=== PATIENT | male | born 1965 | race Caucasian/White ===

== ENCOUNTER 2017-01-29 06:27 | Inpatient (IN) | payer OTHER ==
[2017-01-27 14:43] VITALS: BMI 27.3
[2017-01-29] MEDS ORDERED: LIDOCAINE HCL/PF 2% SDV 5ML VIAL ONE (07:38)
[2017-01-29] MEDS ORDERED: PROPOFOL 20 ML ONE (07:38)
[2017-01-29] MEDS ORDERED: SUCCINYLCHOLINE CHLORIDE 200 MG/10 ML VIAL ONE (07:38)
[2017-01-29] MEDS ORDERED: MIDAZOLAM HCL 2 MG/2 ML SINGLE DOSE VIAL ONE (07:38)
[2017-01-29] MEDS ORDERED: ROCURONIUM BROMIDE 50 MG/5 ML VIAL ONE ×3 (07:38→15:15)
[2017-01-29] MEDS ORDERED: DESFLURANE GAS 240 ML BOTTLE IH ONE ×2 (07:46→15:47)
--- NOTE | 2017-01-29 08:29 | HP ---
History & Physical Update - History History: No Change - Physical Physical: No Change - Assessment Assessment: No Change - Plan Plan: No Change
[2017-01-29] MEDS ORDERED: ERTAPENEM SODIUM 1 GM/50 ML PRE-DOCKED IVPB ONE (08:50)
[2017-01-29] MEDS ORDERED: ERTAPENEM SODIUM 1 GM VIAL ONE (08:50)
[2017-01-29] MEDS ORDERED: INDOCYANINE GREEN 25 MG/10 ML VIAL IVPUSH ONE (09:25)
[2017-01-29] MEDS ORDERED: ISOSULFAN BLUE 10 MG/ML VIAL SQ ONE (12:57)
[2017-01-29] MEDS ORDERED: HYDROmorphone HCL/PF 1 MG/ML VIAL (FOR PYXIS CHARGING ONLY) ONE (14:17)
[2017-01-29] MEDS ORDERED: NEOSTIGMINE METHYLSULFATE 0.5 MG/ML - 10 ML MDV ONE (15:58)
[2017-01-29] MEDS ORDERED: GLYCOPYRROLATE 0.2 MG/1 ML VIAL ONE (16:01)
[2017-01-29] MEDS ORDERED: ONDANSETRON 4 MG/2 ML VIAL IVPUSH PRN (16:59)
[2017-01-29] MEDS ORDERED: ERTAPENEM SODIUM 1 GM in SODIUM CHLORIDE 50 ML IVPB ONE (17:57)
[2017-01-29] MEDS ORDERED: HYDROmorphone *PCA* 10MG/50ML DISP.SYRIN PCA SCH (18:00)
[2017-01-29] MEDS ORDERED: LACTATED RINGERS SOLUTION 1,000 ML IV SCH ×2 (18:00→20:45)
[2017-01-29 18:10] LABS: BASOPHIL 0.1 % (0-2.0); MCH 25.6 pg (25.7-33.7); MCHC 31.5 g/dl (32.0-35.9); MEAN CELL VOLUME 81.2 fl (80-96); MEAN PLT VOLUME 6.5 fl (7.5-11.1); NEUTROPHILS 87.4 % (42.8-82.8); PLATELET COUNT 427 K/MM3 (134-434); RDW 15.4 % (11.9-15.9); WHITE BLOOD COUNT 17.6 K/mm3 (4.0-10.0)
--- NOTE | 2017-01-29 18:17 | OP ---
Operative Note - Note: Operative Date: 01/29/17 Pre-Operative Diagnosis: colo-vesical fistula Operation: Robotic partial colectomy (sigmoidectomy), splenic flexure takedown, resection of colovesical fistula Findings: sigmoid inflammatory mass, colo-vesical fistula Post-Operative Diagnosis: Same as Pre-op Surgeon: Rafy Smith Tool Filer: Chantal Burns Anesthesia: General Specimens Removed: sigmoid colon Estimated Blood Loss (mls): 150
[2017-01-29] MEDS ORDERED: HYDROmorphone HCL CARPU-JECT 2 MG/1 ML DISP.SYRIN ONE (18:49)
[2017-01-29] MEDS: HYDROmorphone HCL CARPU-JECT 2 MG/1 ML DISP.SYRIN IVPB PRN ×2 (18:50→23:17)
[2017-01-29 18:52] LABS: ALBUMIN 2.7 g/dl (3.4-5.0); ALK PHOS 77 U/L (45-117); ANION GAP 7 (8-16); BILIRUBIN,TOTAL 0.7 mg/dL (0.2-1.0); CALCIUM 8.2 mg/dL (8.5-10.1); CO2 27 mmol/L (21-32); CREATININE 1.1 mg/dL (0.7-1.3); GLUCOSE,RANDOM 159 mg/dL (74-106); SGOT/AST 13 U/L (15-37); SGPT/ALT 17 U/L (12-78); TOT PROT 6.3 g/dl (6.4-8.2)
--- NOTE | 2017-01-29 21:15 | CONSULT ---
Consult Consult Specialty:: Pulm/CCM Reason for Consultation:: Post-op colovesicular fistula repair - History of Present Illness Chief Complaint: s/p colectomy; colovesicular fistul repair History of Present Illness: 52yom with PMHx of diverticulosis who was found to have a bladder mass(benign by biopsy) and colon-vesicular fistula after presenting with c/o 2 months of LLQ pain and feculent urine. Today he is post op robotic colectomy and colovesiclar fistula repair ccb rt side subcutaneous emphysema. He was extubated and recovered in the PACU and transferred to ICU for observation. Rec'd awake and oriented x3, BP 127/81; HR 93, o2 sat 99% on 2L NC. Abd incisions x5 dry and intact. NEW to bulb draing small amt sanguinous fluid. Urine blood tinged. C/o mild discomfort at surgical sites. Minimal amt SQ air appreciate on rt upper chest. - History Source History Provided By: Patient, Medical Record Limitations to Obtaining History: No Limitations - Past Medical History Gastrointestinal: Yes: Diverticulitis - Alcohol/Substance Use Hx Alcohol Use: Yes (stopped 2 yrs) - Smoking History Smoking history: Former smoker Have you smoked in the past 12 months: No If you are a former smoker, when did you quit?: 30 yrs ago Home Medications - Allergies Allergies/Adverse Reactions: Allergies Allergy/AdvReac Type Severity Reaction Status Date / Time No Known Drug Allergies Allergy Verified 01/27/17 14:43 - Home Medications Home Medications: Ambulatory Orders NK [No Known Home Medication] 01/27/17 Family Disease History - Family Disease History Family History: Unremarkable Review of Systems - Review of Systems Constitutional: reports: No Symptoms Respiratory: reports: No Symptoms Gastrointestinal: reports: Abdominal Pain Genitourinary: reports: Other (feculent urine) Musculoskeletal: reports: No Symptoms Neurological: reports: No Symptoms Hematology/Lymphatic: reports: No Symptoms Psychiatric: reports: No Symptoms Physical Exam Vital Signs: Vital Signs Temperature 98.8 F 01/29/17 20:15 Pulse Rate 99 H 01/29/17 20:15 Respiratory Rate 12 01/29/17 20:15 Blood Pressure 125/80 01/29/17 20:15 O2 Sat by Pulse Oximetry (%) 100 01/29/17 20:00 Constitutional: Yes: Well Nourished, No Distress, Calm Eyes: Yes: WNL HENT: Yes: Normocephalic Neck: Yes: Supple, Trachea Midline Cardiovascular: Yes: Regular Rate and Rhythm Respiratory: Yes: Regular, CTA Bilaterally Gastrointestinal: Yes: Soft, Tenderness ...Rectal Exam: Yes: WNL Renal/: Yes: Freire Present, Hematuria Extremities: Yes: WNL Edema: No Integumentary: Yes: WNL Wound/Incision: Yes: Dressing Dry and Intact (small amt drainage around NEW drain ; epigastric robotic incision sites intact. Midline incision with samll amt serosang drainage) ...Motor Strength: WNL Psychiatric: Yes: Alert, Oriented Labs: CBC, BMP 01/29/17 17:55 01/29/17 17:55 CBC,CMP WBC 17.6 K/mm3 (4.0-10.0) H D 01/29/17 17:55 RBC 3.65 M/mm3 (4.00-5.60) L 01/29/17 17:55 Hgb 9.3 GM/dL (11.7-16.9) L 01/29/17 17:55 Hct 29.6 % (35.4-49) L 01/29/17 17:55 MCV 81.2 fl (80-96) 01/29/17 17:55 MCH 25.6 pg (25.7-33.7) L 01/29/17 17:55 MCHC 31.5 g/dl (32.0-35.9) L 01/29/17 17:55 RDW 15.4 % (11.9-15.9) 01/29/17 17:55 Plt Count 427 K/MM3 (134-434) 01/29/17 17:55 MPV 6.5 fl (7.5-11.1) L 01/29/17 17:55 Neutrophils % 87.4 % (42.8-82.8) H 01/29/17 17:55 Lymphocytes % 3.4 % (8-40) L 01/29/17 17:55 Monocytes % 9.1 % (3.8-10.2) 01/29/17 17:55 Eosinophils % 0.0 % (0-4.5) 01/29/17 17:55 Basophils % 0.1 % (0-2.0) 01/29/17 17:55 Sodium 138 mmol/L (136-145) 01/29/17 17:55 Potassium 4.6 mmol/L (3.5-5.1) 01/29/17 17:55 Chloride 104 mmol/L (98-107) 01/29/17 17:55 Carbon Dioxide 27 mmol/L (21-32) 01/29/17 17:55 Anion Gap 7 (8-16) L 01/29/17 17:55 BUN 15 mg/dL (7-18) D 01/29/17 17:55 Creatinine 1.1 mg/dL (0.7-1.3) D 01/29/17 17:55 Creat Clearance w eGFR > 60 (>60) 01/29/17 17:55 Random Glucose 159 mg/dL (74-106) H D 01/29/17 17:55 Calcium 8.2 mg/dL (8.5-10.1) L 01/29/17 17:55 Total Bilirubin 0.7 mg/dL (0.2-1.0) 01/29/17 17:55 AST 13 U/L (15-37) L 01/29/17 17:55 ALT 17 U/L (12-78) 01/29/17 17:55 Alkaline Phosphatase 77 U/L (45-117) 01/29/17 17:55 Total Protein 6.3 g/dl (6.4-8.2) L 01/29/17 17:55 Albumin 2.7 g/dl (3.4-5.0) L 01/29/17 17:55 Problem List - Problems (1) Colovesical fistula Code(s): N32.1 - VESICOINTESTINAL FISTULA Assessment/Plan 52yom s/p robotic partial colectomy and colon vesical fistula repair ccb rt chest subcutaneous emphysema transferred to ICU for monitoring Plan -Cont NC O2 for o2sat>95% -Cont antibiotics -Monitor for post-op bleeding -Maintain NEW to bulb suction -Monitor CBC and BMP -Monitor UOP -Ice chips for now -Proph lovenox
[2017-01-30] MEDS ORDERED: ENOXAPARIN NA (PORCINE) 40 MG/0.4 ML DISP.SYRIN SQ SCH (04:00)
[2017-01-30] MEDS: HYDROmorphone HCL CARPU-JECT 2 MG/1 ML DISP.SYRIN IVPB PRN ×3 (07:55→21:00)
[2017-01-30 08:20] LABS: BASOPHIL 0.1 % (0-2.0); MCH 25.7 pg (25.7-33.7); MEAN CELL VOLUME 80.5 fl (80-96); MEAN PLT VOLUME 6.5 fl (7.5-11.1); NEUTROPHILS 77.3 % (42.8-82.8); PLATELET COUNT 359 K/MM3 (134-434); RDW 15.2 % (11.9-15.9); WHITE BLOOD COUNT 14.6 K/mm3 (4.0-10.0)
--- NOTE | 2017-01-30 09:31 | PN ---
Progress Note (short form) - Note Progress Note: Patient seen and examined this morning. Patient states he is doing ok, pain is controlled, but complaining of "new" right sided pain. Patient is NPO, using incentive spriometry, has not been OOB yet, denies flatus, Freire catheter in place. Denies fever, chills, nausea, vomiting. Last Vital Signs Temp Pulse Resp BP Pulse Ox 98.2 F 74 16 104/65 100 01/30/17 06:00 01/30/17 08:22 01/30/17 08:22 01/30/17 08:22 01/29/17 20:00 CBC/BMP pending NEW output 50 ml overnight Exam: Gen: NAD, pleasant and cooperative Resp: CTA Cardio: RRR Abd: soft, nondistended, mild tenderness right side and LLQ with palp, incisions /dressings c/d/i, NEW drain in place with serosanguineous drainage : Freire catheter in place with blood tinged urine LE: soft, nontender Problem List - Problems (1) Colovesical fistula Assessment/Plan: POD#1 s/p Robotic partial colectomy (sigmoidectomy), splenic flexure takedown, resection of colovesical fistula Continue NPO, IVF MOnitor NEW output, abd pain, Freire output Follow-up labs DVT prophylaxis Patient discussed with Dr. Smith Code(s): N32.1 - VESICOINTESTINAL FISTULA
--- NOTE | 2017-01-30 09:44 | PN ---
Physical Exam: SUBJECTIVE: Patient seen and examined at bedside in ICU. Pt states he has been having fecal matter in urine for the last 3 months and had colovesicular repair surgery yesterday. He currently feels well and c/o mild abd pain. He has not passed gas yet. He denies N/V/F/C, CP, SOB, hunger. OBJECTIVE: Vital Signs Temperature 98.2 F 01/30/17 06:00 Pulse Rate 74 01/30/17 08:22 Respiratory Rate 16 01/30/17 08:22 Blood Pressure 104/65 01/30/17 08:22 O2 Sat by Pulse Oximetry (%) 100 01/29/17 20:00 GENERAL: The patient is awake, alert, and fully oriented, in no acute distress. HEAD: Normal with no signs of trauma. EYES: extraocular movements intact, sclera anicteric, conjunctiva clear. No ptosis. ENT: Ears normal, nares patent NECK: Trachea midline, full range of motion LUNGS: Breath sounds equal, clear to auscultation bilaterally HEART: Regular rate and rhythm, S1, S2 ABDOMEN: Surgical sites clean, dry, infected except around drain where there is blood drainage. Drain in place with sanginous drainage. : Urine mixed with blood in bhatti. EXTREMITIES: warm, well-perfused NEUROLOGICAL: Normal speech, gait not observed. PSYCH: Normal mood, normal affect. SKIN: Warm, dry Laboratory Results - last 24 hr 01/29/17 01/29/17 01/30/17 17:55 17:55 08:00 WBC 17.6 H D 14.6 H RBC 3.65 L 3.28 L Hgb 9.3 L 8.4 L Hct 29.6 L 26.4 L MCV 81.2 80.5 MCH 25.6 L 25.7 MCHC 31.5 L 32.0 RDW 15.4 15.2 Plt Count 427 359 MPV 6.5 L 6.5 L Neutrophils % 87.4 H 77.3 Lymphocytes % 3.4 L 7.6 L D Monocytes % 9.1 15.0 H Eosinophils % 0.0 0.0 Basophils % 0.1 0.1 Sodium 138 Potassium 4.6 Chloride 104 Carbon Dioxide 27 Anion Gap 7 L BUN 15 D Creatinine 1.1 D Creat Clearance w eGFR > 60 Random Glucose 159 H D Calcium 8.2 L Total Bilirubin 0.7 AST 13 L ALT 17 Alkaline Phosphatase 77 Total Protein 6.3 L Albumin 2.7 L Active Medications Generic Name Dose Route Start Last Admin Trade Name Freq PRN Reason Stop Dose Admin Enoxaparin Sodium 40 mg 01/30/17 04:00 01/30/17 04:25 Lovenox - SQ 40 mg DAILY@0400 [place] Administration Fentanyl 50 mcg 01/29/17 17:43 Sublimaze Injection - IVPUSH 02/01/17 17:44 [id number] PRN PAIN Hydromorphone HCl 2 mg 01/29/17 19:37 01/30/17 07:55 Dilaudid Injection - IVPB 2 mg Q4H PRN Administration PAIN Lactated Ringer's 1,000 mls @ 100 mls/hr 01/29/17 20:45 01/29/17 20:30 Lactated Ringers Solution IV 100 mls/hr ASDIR [place] Administration ASSESSMENT/PLAN: 52 y/o M w/PMH of diverticulosis presented with fecal matter in urine and had colovesicular fistula repair on 01/29/17 and found to have subq emphysema on R abd/chest wall. In ICU for observation. -Colovesicular fistula -s/p robotic partial colectomy, colovesical fistula repair -POD #1 -pain control w/ dilaudid 2mg IV q4h PRN -LR @ 100ml/hr -NPO -DVT ppx -Lovenox 40 mg sq qd -FEN -LR @ 100 ml/hr -monitor electrolytes, replete as necessary -NPO -Dispo: -can be transferred to surgical floor Problem List - Problems (1) Colovesical fistula Code(s): N32.1 - VESICOINTESTINAL FISTULA Visit type - Emergency Visit Emergency Visit: Yes ED Registration Date: 01/29/17 Care time: The patient presented to the Emergency Department on the above date and was hospitalized for further evaluation of their emergent condition. - New Patient This patient is new to me today: Yes Date on this admission: 01/30/17 - Critical Care Critical Care patient: Yes Total Critical Care Time (in minutes): 35 Critical Care Statement: The care of this patient involved high complexity decision making to prevent further life threatening deterioration of the patient 's condition and/or to evalute & treat vital organ system(s) failure or risk of failure.
[2017-01-30 09:46] LABS: ALBUMIN 2.3 g/dl (3.4-5.0); ALK PHOS 67 U/L (45-117); ANION GAP 7 (8-16); BILIRUBIN,TOTAL 0.5 mg/dL (0.2-1.0); CO2 28 mmol/L (21-32); CREATININE 0.7 mg/dL (0.7-1.3); GLUCOSE,RANDOM 130 mg/dL (74-106); SGOT/AST 13 U/L (15-37); SGPT/ALT 15 U/L (12-78); TOT PROT 5.6 g/dl (6.4-8.2)
--- NOTE | 2017-01-30 10:22 | PN ---
Progress Note (short form) - Note Progress Note: S/P robotic partial colectomy, resection of colovesical fistula C/O right sided pain likely from port sites Afebrile, VSS Abd: drain site wound dressing blood stained, NEW sanguinous = 50cc from ICU soft, non-distended : urine less bloody CXR: right sided SC emphysema likely from partial port dislodgment and CO2 leak during surgery WBC = 14 K <- 17K A: stable and no evidence of respiratory compromise P: May transfer to floor OOB, IS, DVT PROPHYLAXIS clear liquid diet
--- NOTE | 2017-01-30 10:57 | PN ---
Progress Note (short form) - Note Progress Note: Post op day#1.S/p Robotic laproscopic resection of colovesical fistula under GA uneventful.P 98,BP 105/70 and Spo2 98% on O2 2l NC.Patient stable.No any anesthesia related problem.Patient DC from the anesthesia care.
--- NOTE | 2017-01-30 11:22 | PN ---
Teaching Attending Note Name of Resident: Savage Bates ATTENDING PHYSICIAN STATEMENT I saw and evaluated the patient. I reviewed the resident's note and discussed the case with the resident. I agree with the resident's findings and plan as documented. SUBJECTIVE: Pt seen and examined in the ICU. Pain controlled. No nausea or vomiting. No flatus or BM. Denies shortness of breath or chest pain. OBJECTIVE: Last Vital Signs Temp Pulse Resp BP Pulse Ox 98.2 F 74 16 104/65 100 01/30/17 06:00 01/30/17 08:22 01/30/17 08:22 01/30/17 08:22 01/30/17 10:48 Intake & Output 01/27/17 01/28/17 01/29/17 01/30/17 23:59 23:59 23:59 23:59 Intake Total 3150 1200 Output Total 970 400 Balance 2180 800 Weight 159 lb 159 lb 158 lb 9 oz Gen: NAD in chair Heart: RRR Lung: decreased breath sounds at the bases Abd: soft, appropriately tender, +NEW drain with serosanguinous drainage, + subcutaneous emphysema Ext: no edema CBC, BMP 01/30/17 08:00 01/30/17 08:00 Active Medications Enoxaparin Sodium (Lovenox -) 40 mg SQ DAILY@0400 [place] Last Admin: 01/30/17 04:25 Dose: 40 mg Fentanyl (Sublimaze Injection -) 50 mcg IVPUSH [id number] PRN PRN Reason: PAIN Stop: 02/01/17 17:44 Hydromorphone HCl (Dilaudid Injection -) 2 mg IVPB Q4H PRN PRN Reason: PAIN Last Admin: 01/30/17 07:55 Dose: 2 mg Lactated Ringer's (Lactated Ringers Solution) 1,000 mls @ 100 mls/hr IV ASDIR [place] Last Admin: 01/29/17 20:30 Dose: 100 mls/hr Potassium Chloride/Dextrose/Sod Cl (D5-1/2ns+10 Meq Kcl -) 1,000 mls @ 83 mls/ hr IV ASDIR [place] ASSESSMENT AND PLAN: s/p Sigmoidectomy/Colovesical Fistula Resection Subcutaneous Emphysema - pain control - incentive spirometry - monitor drain output - IVF - NPO - await return of bowel function - DVT prophylaxis - can monitor on surgical floor
[2017-01-30] MEDS ORDERED: LACTATED RINGERS SOLUTION 1,000 ML IV SCH (11:42)
--- NOTE | 2017-01-30 13:22 | OP ---
DATE OF OPERATION: 01/29/2017 PREOPERATIVE DIAGNOSIS: Diverticulitis. This is the urology portion of the procedure. Dr. Smith is doing the general surgery part. SURGEON: Jacinto Marie MD DRAINS: Bilateral ureteral catheters. PREOPERATIVE INDICATIONS: The patient is a 51-year-old male who underwent colon surgery. Request has been made for ureteral stents to assist with the surgery. THE OPERATION: The patient was brought to the OR, placed on the table in the supine position, given general anesthesia and IV antibiotics, and placed in the modified lithotomy position. The groin was prepped and draped sterilely. Time-out was performed. Cystoscopy was performed. The urethra and prostate appeared to be unremarkable. The bladder itself was also normal. No tumors or stones were seen. Both ureteral orifices were visualized. A wire was passed up into the left UO, and a 6-Pashto open-ended catheter was placed without difficulty at 25 cm. The same thing was done on the right side, as well. The ureteral catheters were then connected to an adapter that the Freire to the Freire bag and were secured to the Freire catheter. JACINTO MARIE M.D. [id number]
--- NOTE | 2017-01-30 13:37 | SURG ---
Surgery Chemical Laboratory Scientist Note Chemical Laboratory Scientist: Chantal Burns PA-C Date of Service: 01/29/17 Diagnosis: colo-vesical fistula Procedure: Robotic partial colectomy (sigmoidectomy), splenic flexure takedown, resection of colovesical fistula I was present for the entirety of the operative procedure. For further detail, please refer to operative report. Visit type - Case Type Case Type: Scheduled Admission - Emergency Emergency Visit: No - New patient This patient is new to me today: Yes Date on this admission: 01/29/17 - Critical Care Critical Care patient: No
[2017-01-31] MEDS: ENOXAPARIN NA (PORCINE) 40 MG/0.4 ML DISP.SYRIN SQ SCH (03:29)
[2017-01-31] MEDS: HYDROmorphone HCL CARPU-JECT 2 MG/1 ML DISP.SYRIN IVPB PRN ×2 (05:55→12:35)
[2017-01-31] MEDS: D5-1/2NS+10 MEQ KCL - 1,000 ML IV SCH ×2 (05:56→18:45)
[2017-01-31] MEDS ORDERED: D5-1/2NS+10 MEQ KCL - 1,000 ML IV SCH (06:00)
[2017-01-31 08:01] LABS: BASOPHIL 0.2 % (0-2.0); EOSINOPHIL 0.6 % (0-4.5); MCH 26.2 pg (25.7-33.7); MCHC 32.3 g/dl (32.0-35.9); MEAN CELL VOLUME 81.3 fl (80-96); NEUTROPHILS 74.7 % (42.8-82.8); PLATELET COUNT 284 K/MM3 (134-434); RDW 15.3 % (11.9-15.9); WHITE BLOOD COUNT 11.2 K/mm3 (4.0-10.0)
[2017-01-31 08:22] LABS: ANION GAP 2 (8-16); CALCIUM 8.1 mg/dL (8.5-10.1); CO2 35 mmol/L (21-32)
[2017-01-31 08:25] LABS: CREATININE 0.5 mg/dL (0.7-1.3); GLUCOSE,RANDOM 97 mg/dL (74-106)
--- NOTE | 2017-01-31 11:26 | PN ---
Progress Note (short form) - Note Progress Note: Patient seen and examined this morning. Patient states he is doing well. He is having some pain/soreness in his lower abdomen, but this pain is controlled. The right-sided pain he was experiencing yesterday is improved. He is tolerating a clear liquid diet. He has not passed gas or had a BM. He has a Freire catheter in place and is using incentive spirometry. Denies fever, chills , nausea, vomiting, dizziness, SOB. Last Vital Signs Temp Pulse Resp BP Pulse Ox 98.3 F 67 20 116/59 100 01/31/17 10:00 01/31/17 10:00 01/31/17 10:00 01/31/17 10:00 01/30/17 21:00 CBC, BMP 01/31/17 06:38 01/31/17 06:38 NEW drain output: 100 ml recorded in chart yesterday, 40 ml overnight Exam: Gen: NAD, pleasant and cooperative Cardio: RRR Resp: CTA Abd: soft, nondistended, tenderness around lower abdominal incision, mild subq air around port sites on right side, NEW drain in place with serosanguineous drainge, dressing around drain saturated, replaced on rounds : Freire catheter with blood tinged urine in bag, improving LE: calves soft, nontender <Kait Chew - Last Filed: 01/31/17 11:33> - Note Progress Note: Surgery Attending POD # 2 Agree with general content of BILLIE Chew's progress notes Tolerating clear liquids Hgb low from post-op hemoglobin drift Abd: mildly distended from intraluminal gas progressing towards the rectum Continue clear liquids and encourage ambulation <Rafy Smith - Last Filed: 02/01/17 10:55> Problem List - Problems (1) Colovesical fistula Assessment/Plan: POD#2 s/p Robotic partial colectomy (sigmoidectomy), splenic flexure takedown, resection of colovesical fistula Pain control Continue clear liquid diet Monitor labs, H&H Monitor NEW output, Freire output DVT prophylaxis Patient discussed with Dr. Smith Code(s): N32.1 - VESICOINTESTINAL FISTULA <Kait Chew - Last Filed: 01/31/17 11:33>
[2017-01-31] MEDS ORDERED: ACETAMINOPHEN 325 MG TABLET (FP) PO PRN (11:32)
--- NOTE | 2017-01-31 15:07 | PATH ---
Surgical Pathology Report Patient Name: ALBERTINA KABA Med. Rec. #: [id number] /Age/Gender: 1965 (Age: 51) / M Account: [id number] Location: [address] [place] [address]/[facility] Taken: 01/29/2017 Received: 01/30/2017 Reported: 01/31/2017 Physicians: Rafy Smith M.D. Specimen(s) Received SIGMOID COLON Clinical History Colovesical fistula, diverticulitis Final Diagnosis COLON, SIGMOID, SEGMENTAL RESECTION: DIVERTICULOSIS WITH GROSSLY NOTED PERFORATION, AND PERICOLIC FIBROSIS WITH ABSCESS CAVITY AND FOREIGN BODY REACTION. THREE BENIGN MESENTERIC LYMPH NODES PRESENT. Electronically Signed Yordan Willett M.D. Gross Description Received in formalin labeled "sigmoid colon," is a 16 cm in length portion of colon with 2 stapled mucosal margins and moderate attached, firm pericolonic adipose tissue. The serosa is styles-castro with 2 separate defects, consistent with rupture sites and attached exudate. The mucosa is styles with normal folds. Sectioning reveals a focal large abscess cavity containing pus. There are additional uncomplicated diverticula present. There are 3 palpable lymph nodes identified ranging from 0.8-0.9 cm in greatest dimension. Silk Screen Printer sections are submitted in 18 cassettes as follows: 1-4-[id number] mucosal margins; 3-4-first perforation site; 5-7-second perforation site; 8-11-mucosa with surrounding abscess cavity; 21-76-[id number] sections of the large abscess cavity; 14-55-vkorfxpqhk diverticula; 16-18-one whole bisected lymph node each. 01/30/201701/30/2017
[2017-01-31] MEDS: oxyCODONE HCL 5 MG TABLET PO PRN ×2 (18:46→23:48)
[2017-02-01] MEDS: ENOXAPARIN NA (PORCINE) 40 MG/0.4 ML DISP.SYRIN SQ SCH (03:52)
[2017-02-01] MEDS: D5-1/2NS+10 MEQ KCL - 1,000 ML IV SCH ×2 (06:35→18:57)
[2017-02-01 07:35] LABS: MCH 26.3 pg (25.7-33.7); MCHC 32.6 g/dl (32.0-35.9); MEAN CELL VOLUME 80.5 fl (80-96); MEAN PLT VOLUME 6.5 fl (7.5-11.1); PLATELET COUNT 335 K/MM3 (134-434); RDW 14.8 % (11.9-15.9); WHITE BLOOD COUNT 7.4 K/mm3 (4.0-10.0)
[2017-02-01 08:04] LABS: ANION GAP 5 (8-16); CALCIUM 7.7 mg/dL (8.5-10.1); CO2 32 mmol/L (21-32); GLUCOSE,RANDOM 109 mg/dL (74-106)
[2017-02-01 08:07] LABS: CREATININE 0.4 mg/dL (0.7-1.3)
--- NOTE | 2017-02-01 11:41 | OP ---
DATE OF OPERATION: 01/29/2017 PROCEDURE: Robotic-assisted, laparoscopic partial colectomy; splenic flexure takedown; and resection of colovesical fistula. PREOPERATIVE DIAGNOSIS: Colovesical fistula. POSTOPERATIVE DIAGNOSIS: Colovesical fistula. SURGEON: Rafy Smith MD LEATHER SPLITTER: BILLIE Rose, and BILLIE Cordon ANESTHESIA: General endotracheal. FINDINGS AND PROCEDURE: This is a 51-year-old male who presents with fecaluria for more than 2 months. He was initially worked-up by Urology to rule out bladder tumor. Patient was admitted more than a month ago for left lower quadrant pain, and a CT scan revealed colovesical fistula with air in the bladder. Patient had cystoscopy and biopsy which revealed inflammatory tissue and a colonoscopy which revealed severe diverticulitis, and a biopsy did not show any malignancy. So, on physical exam, patient has mild left lower quadrant tenderness, and the rest of the exam was unremarkable. So, patient was advised resection of the colovesical fistula, and consent was obtained after discussion of the risks, benefits, and alternatives of the procedure. The patient was brought to the operating room and placed in supine position. General endotracheal anesthesia was administered. Patient was then placed in modified lithotomy position. Dr. Marie inserted the bilateral ureteral stents. The abdomen and the perineum were then prepped and draped in the usual sterile fashion. Using 0.5% Marcaine, local anesthesia was administered to the proposed incision sites. The peritoneal cavity was entered using the Veress needle technique by a right upper quadrant puncture wound, and pneumoperitoneum was established. This was followed by insertion of an 8-mm port. The 3D laparoscope was inserted, and the peritoneal cavity was carefully inspected and was noted to be free of inadvertent injury. The sigmoid colon was noted to be tethered to the posterior abdominal wall in the pelvis and to the urinary bladder. A long segment of distal sigmoid colon was noted to be soft and pliable with no sign of inflammation. The three other 8- mm ports were placed about 8 cm away from each other in a diagonal fashion following the subcostal ribcage about 15 cm away from the sigmoid, with the right lower quadrant port being a 12-mm port. Another 5-mm port was inserted between the second and third port as an acute care assistant port and for suctioning. The patient was then placed in steep Trendelenburg, [id number] position. The robotic arms were docked. Initially, the 3D scope was placed at the 2nd port, but later was moved to the 3rd port at the level of the umbilicus. The EndoWrist graspers were also initially placed in the right lower quadrant port, but later transferred to the subxiphoid port. The EndoWrist clyde at this time were now inserted at the right lower quadrant port. The right upper quadrant port was now holding the fenestrated bipolar. Then, I scrubbed out and commenced the console part of the procedure. The splenic flexure takedown was done initially by incising the white line of Toldt using the EndoWrist clyde connected to monopolar cautery. This was carried towards the splenic flexure until the whole segment of colon was freed up, and with the descending colon being retracted all the way down to the pelvis. After this was done, a [id number]-[id number] dissection of the sigmoid colon was done by incising the medial visceral peritoneum of the sigmoid mesentery using the EndoWrist clyde. This was followed by the use of the vessel sealing device. The sigmoid vessels were identified and isolated. The branch of the superior sigmoid vessels coming from the inferior mesenteric artery was isolated, clipped at 3 points, followed by transection, leaving 2 clips at each artery and the venous stumps. The [id number]-pf-[id number] dissection was proceeded bluntly until the retroperitoneum was visualized. The ureter was properly identified, and dissection was carried above the retroperitoneum until the right paracolic gutter was reached. After this was completed, the takedown of the colovesical fistula was then performed by combined sharp dissection with the EndoWrist clyde and the vessel sealing device. A careful dissection was done, and due to the dense adhesions of the colonic wall to the bladder, part of the lateral wall of the colon was excised and left in situ to the superior dome of the bladder. The bladder was then irrigated with 1 L of saline mixed with methylene blue. The bladder was distended, and pressure was applied. At this point, no blue fluid was noted to extravasate. The distal sigmoid colon was then transected using the Endo JP 45 3.5 mm stapling device. This transection was carried out about 5 cm away from the inflammatory mass. Proximally, the descending colon was transected about also 5 cm from the proximal extent of the inflammatory mass. After this was done, a [id number] intracorporeal anastomosis using the Endo JP 45 stapling device which was fired twice to create a larger lumen. The common channel was then closed with continuous V-Loc 2-0 suture for the full thickness of the colonic wall and continuous Lembert V-Loc 2-0 seromuscular sutures as reinforcement. After the anastomosis was deemed satisfactory, the pelvic region was copiously irrigated with sterile normal saline until return was clear. The fluid mixed with blood was carefully suctioned. The robotic arms were undocked. An 8 -cm Pfannenstiel incision was made at the suprapubic region using scalpel blade number 10, and dissection was carried down to the anterior rectus sheath which was incised transversely, also transecting the pyramidalis muscle down to the peritoneum. The specimen was then extracted via the suprapubic incision. The pneumoperitoneum was evacuated, and the ports were removed. The Yovany-Smyth drain was then deployed into the pelvic cavity. The omentum was then pulled down to be interposed between the bladder and the rectum. The Yovany-Smyth drain was exited via the right lower quadrant port site and was anchored to the skin with 0 silk suture. The wound was then closed with a running Vicryl 0 suture for the peritoneum and running Vicryl 0 suture for the fascia. The wound was copiously irrigated with sterile normal saline until return was clear. All the skin wounds were then closed with skin hugo and covered with sterile dressing. The ureteral stents were removed, leaving the Freire catheter in place. The patient was placed back in supine position and successfully extubated. The patient was transferred to the postanesthesia care unit in satisfactory condition. ESTIMATED BLOOD LOSS: About 150 mL. WOUND CLASS: Clean/contaminated. The patient received a gram of Invanz prior to the start of the procedure, with 1 dose to be administered 12 hours after for antibiotic prophylaxis. Senthil [id number] MTDD
[2017-02-01] MEDS: HYDROmorphone HCL CARPU-JECT 2 MG/1 ML DISP.SYRIN IVPB PRN (14:08)
--- NOTE | 2017-02-01 18:19 | PN ---
Progress Note (short form) - Note Progress Note: POD # 3 Afebrile, VSS Denies flatus Abd: mildly distended, wounds intact urine clear NEW - serosanguinous WBC = 7K Hgb = 8.3 A: Doing well, awaiting full return of bowel function P: stay on clears until passage of flatus/stool ambulate, continue IVF
[2017-02-02] MEDS: ENOXAPARIN NA (PORCINE) 40 MG/0.4 ML DISP.SYRIN SQ SCH (03:18)
[2017-02-02] MEDS: HYDROmorphone HCL CARPU-JECT 2 MG/1 ML DISP.SYRIN IVPB PRN (03:18)
[2017-02-02] MEDS: D5-1/2NS+10 MEQ KCL - 1,000 ML IV SCH ×2 (06:51→19:01)
[2017-02-02 09:03] LABS: BASOPHIL 0.2 % (0-2.0); EOSINOPHIL 5.7 % (0-4.5); MCH 26.1 pg (25.7-33.7); MCHC 31.7 g/dl (32.0-35.9); MEAN CELL VOLUME 82.4 fl (80-96); MEAN PLT VOLUME 6.8 fl (7.5-11.1); NEUTROPHILS 62.1 % (42.8-82.8); PLATELET COUNT 476 K/MM3 (134-434); RDW 15.4 % (11.9-15.9); WHITE BLOOD COUNT 7.8 K/mm3 (4.0-10.0)
[2017-02-02 09:13] LABS: ANION GAP 8 (8-16); CALCIUM 8.3 mg/dL (8.5-10.1); CO2 30 mmol/L (21-32); CREATININE 0.6 mg/dL (0.7-1.3); GLUCOSE,RANDOM 98 mg/dL (74-106)
[2017-02-02] MEDS: oxyCODONE HCL 5 MG TABLET PO PRN ×2 (13:37→21:50)
--- NOTE | 2017-02-02 19:08 | PN ---
Progress Note (short form) - Note Progress Note: POD # 4 Passed flatus and had 2 BM's Afebrile, VSS Abd: mildly distended, soft, intact wounds, NEW = 140 cc serosanguinous : clear urine WBC = 7.8 K, Hgb = 9.7 gm/dl A/P: full return of bowel function advance ti full liquids and regular diet in am possible D/C planning in am.
[2017-02-03] MEDS: ENOXAPARIN NA (PORCINE) 40 MG/0.4 ML DISP.SYRIN SQ SCH (03:20)
[2017-02-03] MEDS: oxyCODONE HCL 5 MG TABLET PO PRN ×3 (07:22→22:34)
--- NOTE | 2017-02-03 18:10 | PN ---
Progress Note (short form) - Note Progress Note: POD #5 Tolerated regular diet No flatus and BM today Afebrile, VSS Abd: wounds intact, soft, NEW serous = 120cc A/P: Doing well D/C planning in am
[2017-02-04] MEDS: ENOXAPARIN NA (PORCINE) 40 MG/0.4 ML DISP.SYRIN SQ SCH (03:05)
[2017-02-04] MEDS: oxyCODONE HCL 5 MG TABLET PO PRN (09:51)
--- NOTE | 2017-02-04 12:50 | PN ---
Progress Note (short form) - Note Progress Note: PT states that he had small BM with the passing of a little blood. No emesis, vomiting. OOB and ambulating. Vital Signs Period Temp Pulse Resp BP Sys/Sandoval Pulse Ox Last 24 Hr 97.7 F-99.2 F 67-79 18-18 118-144/68-77 99 NEW:155 serous PE: ABD: soft, non-distended, inc tenderness. Incisions c/d/i with hugo. LE: no calf tenderness or swelling noted b/l A/P: s/p robotic assisted, partial colectomy with colovesical takedown Patients care D/w Dr. Smith and will plan for discharge today with VNS services for his NEW and bhatti The patient will follow-up with Dr. SMITH next week for NEW removal Continue bhatti cath to gravity drainage and will f/u with Dr. Smith to coordinate bhatti cath removal
[2017-02-04 19:36] VITALS: BP 115/73; PULSE 67; TEMP 98.3
== END 2017-02-04 20:09 | disposition home health service (06) | DRG 950 ==
LOC: JASUSAT 06:27 → JSAMEDAYSX 17:54 → JICU 20:23 → J6S 01-30 13:39
PROVIDERS: ADMIT Surgery; ATTEND Surgery
PROC: 0T788DZ Dilation of Bilateral Ureters with Intraluminal Device, Via Natural or Artificial Opening Endoscopic (ICD-10-PCS; 2017-01-29)
PROC: 0DBN4ZZ Excision of Sigmoid Colon, Percutaneous Endoscopic Approach (ICD-10-PCS; principal; 2017-01-29 08:00)
PROC: 8E0W4CZ Robotic Assisted Procedure of Trunk Region, Percutaneous Endoscopic Approach (ICD-10-PCS; 2017-01-29 08:00)
DX: N32.1 Vesicointestinal fistula (principal); K57.32 Diverticulitis of large intestine without perforation or abscess without bleeding; T81.82XA Emphysema (subcutaneous) resulting from a procedure, initial encounter; Y83.2 Surgical operation with anastomosis, bypass or graft as the cause of abnormal reaction of the patient, or of later complication, without mention of misadventure at the time of the procedure; Z87.891 Personal history of nicotine dependence
CPT/HCPCS: 36415; 71010-TC; 80048; 80053; 85025; 85027; 88307-TC; 94760